=== PATIENT | female | born 1990 | race Caucasian/White ===

== ENCOUNTER 2018-08-28 19:09 | Emergency (ER) | payer SELFPAY ==
[2018-08-28] MEDS ORDERED: Sodium Chloride 0.9% 1,000 ML IV STA (20:59)
--- NOTE | 2018-08-28 21:03 | ED PDOC ---
HPI: General Adult Time Seen by Provider: 08/28/18 20:45 Chief Complaint (Nursing): Dizziness/Lightheaded Chief Complaint (Provider): generalized weakness History Per: Patient History/Exam Limitations: no limitations Onset/Duration Of Symptoms: Days (3 weeks) Current Symptoms Are (Timing): Still Present Additional Complaint(s): 27 y/o female presents for evaluation of generalized weakness x 3 weeks. Patient also reports intermittent neck lymph node swelling x 2 years. Patient states she is currently on Penicillin prescribed by her dentist for dental pain. Patient states while driving tonight she had an episode of dizziness, which lasted a few seconds and then resolved. Denies fever, headache, vision changes, extremity numbness/weakness, throat pain, cough, chest pain, shortness of breath, palpitations, abdominal pain. Past Medical History Reviewed: Historical Data, Nursing Documentation, Vital Signs Vital Signs: Last Vital Signs Temp 98.7 F 08/28/18 20:09 Pulse 77 08/28/18 20:09 Resp 16 08/28/18 20:09 BP 125/73 08/28/18 20:09 Pulse Ox 99 08/28/18 20:09 - Medical History PMH: No Chronic Diseases - Surgical History Surgical History: No Surg Hx - Family History Family History: States: Unknown Family Hx - Immunization History Hx Tetanus Toxoid Vaccination: Yes Hx Influenza Vaccination: No Hx Pneumococcal Vaccination: No - Home Medications Home Medications: Ambulatory Orders Medication Instructions Recorded Silver Sulfadiazine [Silvadene] 1 applic TP BID #1 01/14/16 - Allergies Allergies/Adverse Reactions: Allergies Allergy/AdvReac Type Severity Reaction Status Date / Time No Known Allergies Allergy Verified 08/28/18 20:09 Review of Systems ROS Statement: Except As Marked, All Systems Reviewed And Found Negative Neurological: Positive for: Weakness Physical Exam - Reviewed Nursing Documentation Reviewed: Yes Vital Signs Reviewed: Yes - Physical Exam Appears: Positive for: Well, Non-toxic, No Acute Distress Head Exam: Positive for: ATRAUMATIC, NORMAL INSPECTION, NORMOCEPHALIC Skin: Positive for: Normal Color Eye Exam: Positive for: Normal appearance ENT: Positive for: Normal ENT Inspection Cardiovascular/Chest: Positive for: Regular Rate, Rhythm Respiratory: Positive for: Normal Breath Sounds Gastrointestinal/Abdominal: Positive for: Normal Exam Back: Positive for: Normal Inspection Extremity: Positive for: Normal ROM Lymphatic: Positive for: Adenopathy (soft, mobile submanidbular nodes bilaterally ) Neurologic/Psych: Positive for: Alert, Oriented (x3) - Laboratory Results Result Diagrams: 08/28/18 21:25 08/28/18 21:25 - ECG O2 Sat by Pulse Oximetry: 99 - Progress ED Course And Treament: -cbc -cmp -mono -tsh -rapid strep -influenza -urinalysis -IV NS bolus On re-eval, patient states she is feeling better. Vitals stable Patient educated on findings, discharged with rx ibuprofen Advised follow up PMD within 2-3 days Return precautions given Disposition - Clinical Impression Clinical Impression: Generalized weakness, Lymphadenopathy - Patient ED Disposition Is Patient to be Admitted: No Counseled Patient/Family Regarding: Studies Performed, Diagnosis, Need For Followup - Disposition Referrals: [facility] [Outside] Disposition: Routine/Home Disposition Time: 00:14 Condition: IMPROVED Instructions: Weakness (ED) Forms: [employer] (Somali)
[2018-08-28 21:52] LABS: BASO # 0.1 K/uL (0.0-0.2); BASO % 0.8 % (0.0-2.0); EOS # 0.2 K/uL (0.0-0.7); EOS % 2.3 % (0.0-4.0); HEMOGLOBIN 12.8 g/dL (12.0-16.0); LYMPH # 2.8 K/uL (1.0-4.3); LYMPH % 28.6 % (20.0-40.0); MEAN CELL VOLUME 84.3 fl (81.0-99.0); MEAN CORPUSCULAR HEMOGLOBIN 27.8 pg (27.0-31.0); MEAN CORPUSCULAR HGB CONC 32.9 g/dL (33.0-37.0); MEAN PLATELET VOLUME 6.6 fl (7.2-11.7); MONO # 0.9 K/uL (0.0-0.8); NEUT # 5.9 K/uL (1.8-7.0); NEUT % 59.3 % (50.0-75.0); NRBC % 0.1 % (0.0-0.0); RBC 4.61 Mil/uL (3.80-5.20); RED CELL DISTRIBUTION WIDTH 14.4 % (11.5-14.5); WHITE BLOOD COUNT 9.9 K/uL (4.8-10.8)
[2018-08-28 22:04] LABS: ALB/GLOB RATIO 1.3 (1.0-2.1); ALBUMIN 4.4 g/dL (3.5-5.0); ALT/SGPT 23 U/L (9-52); AST/SGOT 27 U/L (14-36); BLOOD UREA NITROGEN 14 mg/dl (7-17); CALCIUM 9.4 mg/dL (8.4-10.2); GFR NON-AFRICAN AMERICAN > 60
[2018-08-28 22:12] LABS: SQUAMOUS EPITHIAL 35 /hpf (0-5); URINE BACTERIA RARE (<OCC); URINE BILIRUBIN NEGATIVE (NEGATIVE); URINE BLOOD NEGATIVE (NEGATIVE); URINE CLARITY CLOUDY (Clear); URINE COLOR YELLOW (YELLOW); URINE GLUCOSE (UA) NEG (NEGATIVE); URINE LEUKOCYTE ESTERASE TRACE Leu/uL (Negative); URINE PROTEIN 30 mg/dL (NEGATIVE); URINE UROBILINOGEN 0.2-1.0 mg/dL (0.2-1.0)
[2018-08-29 00:24] VITALS: BP 130/87; PULSE 67; RESP 17; TEMP 98.9; O2SAT 98
== END 2018-08-29 00:33 | disposition home or self-care (01) ==
LOC: H.ER 19:09
DX: M62.81 Muscle weakness (generalized) (principal); R59.9 Enlarged lymph nodes, unspecified
CPT/HCPCS: 80053; 81003; 81025; 84443; 85025; 86308; 87070; 87430; 87804; 99285; J1885; J7030

== ENCOUNTER 2018-10-03 16:55 | Emergency (ER) | payer MEDICAID, OTHER ==
[2018-10-03 17:05] VITALS: RESP 18; O2SAT 99
--- NOTE | 2018-10-03 17:28 | ED PDOC ---
HPI: Female Pain Time Seen by Provider: 10/03/18 17:13 Chief Complaint (Nursing): Female Genitourinary Chief Complaint (Provider): bleeding, suprapubic abdominal pain History Per: Patient History/Exam Limitations: no limitations Additional Complaint(s): 28 y/o F with hx of ovarian cysts who presents with persistent menstrual bleeding, abdominal pain, night sweats. Pt states that she has been having menstrual period x 1 month with abdominal pain x 1 week and intermittent nausea, night sweats and chills and overall not feeling well. Pt saw her PMD and transportation security officer yesterday who performed some labs and advised her that she should go to ER if her pain became worse. Pt developed worsening abdominal pain since last night. She is unable to lie on her left side. She feels intermittently dizzy and feels a burning sensation all over her body with the abdominal pain. Denies fever, vomiting, dysuria. She took Ibuprofen at 7am today with minimal relief. Past Medical History Reviewed: Historical Data, Nursing Documentation, Vital Signs Vital Signs: Last Vital Signs Temp 98.1 F 10/03/18 17:01 Pulse 76 10/03/18 17:01 Resp 18 10/03/18 17:01 BP 113/74 10/03/18 17:01 Pulse Ox 99 10/03/18 17:01 - Medical History PMH: No Chronic Diseases - Family History Family History: States: Unknown Family Hx - Immunization History Hx Tetanus Toxoid Vaccination: Yes Hx Influenza Vaccination: No Hx Pneumococcal Vaccination: No - Home Medications Home Medications: Ambulatory Orders Medication Instructions Recorded Silver Sulfadiazine [Silvadene] 1 applic TP BID #1 01/14/16 - Allergies Allergies/Adverse Reactions: Allergies Allergy/AdvReac Type Severity Reaction Status Date / Time No Known Allergies Allergy Verified 10/03/18 17:05 Review of Systems Constitutional: Positive for: Chills, Sweats, Weakness. Negative for: Fever Respiratory: Negative for: Shortness of Breath Gastrointestinal: Positive for: Nausea, Abdominal Pain. Negative for: Vomiting, Diarrhea Genitourinary Female: Negative for: Dysuria Physical Exam - Reviewed Nursing Documentation Reviewed: Yes Vital Signs Reviewed: Yes - Physical Exam Appears: Positive for: Uncomfortable Head Exam: Positive for: ATRAUMATIC Skin: Positive for: Normal Color ENT: Positive for: Normal ENT Inspection Neck: Positive for: Normal Cardiovascular/Chest: Positive for: Regular Rate, Rhythm Respiratory: Positive for: Normal Breath Sounds Gastrointestinal/Abdominal: Positive for: Soft, Tenderness (diffuse abdominal tenderness mostly localized to suprapubic and LLQ. ), Guarding. Negative for: Distended, Rebound Back: Positive for: Normal Inspection Neurologic/Psych: Positive for: Alert, Oriented - Laboratory Results Result Diagrams: 10/03/18 18:00 10/03/18 18:00 - ECG O2 Sat by Pulse Oximetry: 99 Medical Decision Making Medical Decision Making: Urine preg U/A Transvaginal U/S CBC, CMP Toradol 30mg IM x 1 19:30: re-evaluated, pain has improved significantly, labs WNL, patient endorsed to [facility] pending transvaginal U/S results. Disposition - Clinical Impression Clinical Impression: Abdominal pain - Patient ED Disposition Is Patient to be Admitted: Transfer of Care ([facility]) - Disposition Disposition: Transfer of Care Disposition Time: 20:05 Condition: FAIR Forms: [employer] [facility] (Norwegian)
[2018-10-03 18:15] LABS: BASO # 0.1 K/uL (0.0-0.2); EOS # 0.2 K/uL (0.0-0.7); HEMOGLOBIN 12.9 g/dL (12.0-16.0); LYMPH # 1.4 K/uL (1.0-4.3); LYMPH % 24.3 % (20.0-40.0); MEAN CELL VOLUME 84.8 fl (81.0-99.0); MEAN CORPUSCULAR HEMOGLOBIN 27.7 pg (27.0-31.0); MEAN CORPUSCULAR HGB CONC 32.7 g/dL (33.0-37.0); MEAN PLATELET VOLUME 6.7 fl (7.2-11.7); MONO # 0.6 K/uL (0.0-0.8); MONO % 11.3 % (0.0-10.0); NEUT # 3.4 K/uL (1.8-7.0); NEUT % 60.4 % (50.0-75.0); NRBC % 0.1 % (0.0-0.0); RBC 4.63 Mil/uL (3.80-5.20); RED CELL DISTRIBUTION WIDTH 14.4 % (11.5-14.5); WHITE BLOOD COUNT 5.6 K/uL (4.8-10.8)
[2018-10-03 18:25] LABS: ALB/GLOB RATIO 1.3 (1.0-2.1); ALBUMIN 4.2 g/dL (3.5-5.0); ALT/SGPT 20 U/L (9-52); AST/SGOT 21 U/L (14-36); BLOOD UREA NITROGEN 12 mg/dl (7-17); CALCIUM 9.5 mg/dL (8.4-10.2); GFR NON-AFRICAN AMERICAN > 60
--- NOTE | 2018-10-03 21:31 | ED PDOC ---
- Laboratory Results Result Diagrams: 10/03/18 18:00 10/03/18 18:00 Lab Results: Total Bilirubin 0.4 mg/dl (0.2-1.3) 10/03/18 18:00 AST 21 U/L (14-36) 10/03/18 18:00 ALT 20 U/L (9-52) 10/03/18 18:00 Alkaline Phosphatase 86 U/L (38-126) 10/03/18 18:00 Total Protein 7.5 G/DL (6.3-8.2) 10/03/18 18:00 Albumin 4.2 g/dL (3.5-5.0) 10/03/18 18:00 Globulin 3.3 gm/dL (2.2-3.9) 10/03/18 18:00 Albumin/Globulin Ratio 1.3 (1.0-2.1) 10/03/18 18:00 - ECG O2 Sat by Pulse Oximetry: 99 - Progress ED Course And Treament: 1999 Signed out to me pending US report. 2100 On my intial evaluation, pt. in no distress. Reports on 04/2018 she was informed that she had a L ovarian cyst during an ED visit in [facility] for painful vaginal bleeding. Abd soft and non-tender. No CVA tenderness b/l. 2139 US: mildly prominent L ovarian size, tiny nabothian cyst Pt. informed of results and advised to f/u with OBGYN for further evaluation but is to return to ED immediately if symptoms worsen. Disposition - Clinical Impression Clinical Impression: Dysfunctional uterine bleeding - POA Present On Arrival: None - Disposition Referrals: [facility] [Outside] Disposition: Routine/Home Disposition Time: 21:44 Condition: FAIR Additional Instructions: FOLLOW UP WITH YOUR OBGYN FOR FURTHER EVALUATION RETURN TO ED IMMEDIATELY IF SYMPTOMS WORSEN [facility] JOHNSON, thank you for letting us take care of you today. Your provider angela Dalton III DO and you were treated for POSS OVARIAN CYST. The emergency medical care you received today was directed at your acute symptoms. If you were prescribed any medication, please fill it and take as directed. It may take several days for your symptoms to resolve. Return to the Emergency Department if your symptoms worsen, do not improve, or if you have any other problems. Please contact your doctor or call one of the physicians/clinics you have been referred to that are listed on the Patient Visit Information form that is included in your discharge packet. Bring any paperwork you were given at discharge with you along with any medications you are taking to your follow up visit. Our treatment cannot replace ongoing medical care by a primary care provider outside of the emergency department. Thank you for allowing the [facility] team to be part of your care today. If you had an X-Ray or CT scan: A Radiologist will review the ED reading if any change in treatment is needed we will contact you. If you had a blood, urine, or wound culture: It will take several days for the results, if any change in treatment is needed we will contact you. If you had an STI test: It will take 48 hours for the results. Please call after 1 week if you have not heard back. Prescriptions: Naproxen [Naprosyn] 500 mg PO BID PRN #10 tab PRN Reason: Pain Instructions: Absent or Irregular Periods Forms: [employer] (Belarusian) Print Language: FRENCH
[2018-10-03 22:34] VITALS: BP 118/76; PULSE 81; TEMP 98.3
--- NOTE | 2018-10-04 09:06 | US ---
Date of service: 10/03/2018 HISTORY: suprapubic pain and LLQ pain x 1 week COMPARISON: None available. TECHNIQUE: Grayscale, color Doppler and spectral evaluation the pelvis performed transvaginally FINDINGS: UTERUS: Measures 7.0 x 4.0 x 3.1 cm. Anteverted. Normal in size and appearance. No fibroid or other mass lesion seen. ENDOMETRIUM: Measures 5 mm in diameter. Unremarkable. CERVIX: No cervical abnormality identified. RIGHT OVARY: Measures 3.1 x 1.7 x 2.2 cm. No solid mass. Normal flow. LEFT OVARY: Measures 3.3 x 2.9 x 2 point cm. No solid mass. Normal flow. FREE FLUID: No significant free fluid noted. OTHER FINDINGS: None. IMPRESSION: Unremarkable pelvic ultrasound.
== END 2018-10-03 22:20 | disposition home or self-care (01) ==
LOC: H.ER 16:55
DX: N83.202 Unspecified ovarian cyst, left side (principal); N88.8 Other specified noninflammatory disorders of cervix uteri
CPT/HCPCS: 76830; 80053; 81025; 85025; 96372; 99284; J1885

== ENCOUNTER 2019-01-30 00:54 | Emergency (ER) | payer MEDICAID, OTHER ==
[2019-01-30 01:22] VITALS: BP 119/73; PULSE 97; RESP 20; TEMP 99.6; O2SAT 99
[2019-01-30] MEDS ORDERED: Albuterol-Ipratrop 3 mg / 0.5 (3 ml) UD INH STA ×2 (02:51→02:52)
--- NOTE | 2019-01-30 04:03 | ED PDOC ---
HPI: CCC, URI, Sore Throat Time Seen by Provider: 01/30/19 02:39 Chief Complaint (Nursing): Flu-like Symptoms Chief Complaint (Provider): Flu-like Symptoms History Per: Patient History/Exam Limitations: no limitations Onset/Duration Of Symptoms: Days Current Symptoms Are (Timing): Still Present Additional Complaint(s): 28 year old female presents to the ED for an evaluation of runny nose, congestion, ear pressure and cough onset for 2 weeks. Patient has been coughing to a point she has chest pain. However, no chest pain with exertion. Also reports of body ache and mom convinced her to go to the ED to make sure there is no pneumonia. Otherwise, she denies fever or sick contacts. PMD: non [facility] provider Past Medical History Reviewed: Historical Data, Nursing Documentation, Vital Signs Vital Signs: Last Vital Signs Temp 99.6 F 01/30/19 01:19 Pulse 97 H 01/30/19 01:19 Resp 20 01/30/19 01:19 BP 119/73 01/30/19 01:19 Pulse Ox 99 01/30/19 01:19 Primary Care Provider: Non [facility] Provider, - Medical History PMH: No Chronic Diseases Denies: Kidney Stones, Chronic Kidney Disease - Family History Family History: States: Unknown Family Hx - Immunization History Hx Tetanus Toxoid Vaccination: Yes Hx Influenza Vaccination: No Hx Pneumococcal Vaccination: No - Home Medications Home Medications: Ambulatory Orders Medication Instructions Recorded Silver Sulfadiazine [Silvadene] 1 applic TP BID #1 01/14/16 Naproxen [Naprosyn] 500 mg PO BID PRN #10 tab 10/03/18 Albuterol HFA [Ventolin HFA 90 2 puff IH [id number] #1 pump 01/30/19 mcg/actuation (8 g)] Cetirizine HCl/Pseudoephedrine 1 each PO Q12 #60 tab.er.12h 01/30/19 [Zyrtec-D Tablet] predniSONE [predniSONE Tab] 40 mg PO DAILY #8 tab 01/30/19 - Allergies Allergies/Adverse Reactions: Allergies Allergy/AdvReac Type Severity Reaction Status Date / Time No Known Allergies Allergy Verified 01/30/19 01:20 Review of Systems ROS Statement: Except As Marked, All Systems Reviewed And Found Negative Constitutional: Positive for: Other (body ache ). Negative for: Fever ENT: Positive for: Nose Discharge, Nose Congestion, Other (ear pressure ) Cardiovascular: Negative for: Chest Pain Respiratory: Positive for: Cough Physical Exam - Reviewed Nursing Documentation Reviewed: Yes Vital Signs Reviewed: Yes - Physical Exam Appears: Positive for: Well, Non-toxic, No Acute Distress Head Exam: Positive for: ATRAUMATIC, NORMAL INSPECTION, NORMOCEPHALIC Skin: Positive for: Normal Color, Warm, Dry Eye Exam: Positive for: EOMI, Normal appearance, PERRL ENT: Positive for: Pharynx Is (cobblestoning ), TM Is/Are (normal ), Other (excoriation to ear canals bilaterally ). Negative for: Tonsillar Exudate, Tonsillar Swelling Neck: Positive for: Normal, Painless ROM Cardiovascular/Chest: Positive for: Regular Rate, Rhythm. Negative for: Murmur Respiratory: Positive for: Normal Breath Sounds. Negative for: Respiratory Distress Gastrointestinal/Abdominal: Positive for: Normal Exam, Soft. Negative for: Tenderness Back: Positive for: Normal Inspection Extremity: Positive for: Normal ROM. Negative for: Tenderness, Pedal Edema, Deformity Neurological/Psych: Positive for: Awake, Alert, Normal Tone, Oriented (x3) - ECG O2 Sat by Pulse Oximetry: 99 (RA) Pulse Ox Interpretation: Normal Medical Decision Making Medical Decision Making: Time: 250 Impression: cough secondary to allergic rhinitis. Will give five Albuterol for symptomatic relief Plan: CXR to r/o pneumonia Albuterol 3ml Ibuprofen 600mg Prednisone 60mg Peak flow pre/post tx Re-evaluation Patient refusing CXR in the ED 0409 Upon provider evaluation patient is medically stable, and requires no further treatment in the ED at this time. Patient will be discharged. Counseling was provided and all questions were answered regarding diagnosis and need for follow up with PMD. There is agreement to discharge plan. Return if symptoms persist or worsen. Scribe Attestation: Documented by Amy Oleary, acting as a scribe for Annette Tapia MD Provider Scribe Attestation: All medical record entries made by the Scribe were at my direction and personally dictated by me. I have reviewed the chart and agree that the record accurately reflects my personal performance of the history, physical exam, medical decision making, and the department course for this patient. I have also personally directed, reviewed, and agree with the discharge instructions and disposition. Disposition - Clinical Impression Clinical Impression: Seasonal allergic rhinitis - Disposition Referrals: Zaid Schmidt MD [Primary Care Provider] - Disposition: Routine/Home Disposition Time: 04:09 Condition: IMPROVED Prescriptions: Albuterol HFA [Ventolin HFA 90 mcg/actuation (8 g)] 2 puff IH [id number] #1 pump Cetirizine HCl/Pseudoephedrine [Zyrtec-D Tablet] 1 each PO Q12 #60 tab.er.12h predniSONE [predniSONE Tab] 40 mg PO DAILY #8 tab Instructions: Seasonal Allergies in Adults Forms: [facility] ([place] Islander), [facility] ED School/Work Excuse Print Language: TUNISIAN
== END 2019-01-30 04:15 | disposition home or self-care (01) ==
LOC: H.ER 00:54
DX: J30.9 Allergic rhinitis, unspecified (principal); Z79.899 Other long term (current) drug therapy